=== PATIENT | male | born 1995 | race African-American/Black ===

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

== ENCOUNTER 2019-06-10 20:58 | Emergency (ER) | payer OTHER ==
[2019-06-10] MEDS ORDERED: ONDANSETRON 4 MG/2 ML VIAL IVP STA (21:34)
[2019-06-10] MEDS ORDERED: ACETAMINOPHEN TAB 325 MG TAB PO STA (21:35)
--- NOTE | 2019-06-10 21:42 | ED ---
Nausea/Vomiting/Diarrhea HPI - General Chief complaint: Nausea/Vomiting/Diarrhea Stated complaint: Vomiting Time Seen by Provider: 06/10/19 21:15 Source: patient Mode of arrival: ambulatory Limitations: no limitations - History of Present Illness Initial comments: 's patient is 24-year-old man presenting to be evaluated for abdominal pain, diarrhea, nausea. When I interview the patient, he states that his symptoms started early today with upset stomach and diarrhea. He states he has had about 4 watery bowel movements. He has not noted any blood or tarry material. He indicates that the pain is epigastric and upper abdominal. He states it is bu rning and intermittent. The pain is mild though he states it gets worse she tries to drink anything area he states that he has not felt like eating all day because of the nausea. He denies having any sarah vomiting. MD complaint: nausea, diarrhea, abdominal pain Onset/Timin -: days(s) Description of Diarrhea: water Associated Abdominal Pain: Yes Location: epigastric Radiation: none Severity: mild Quality: other (burning) Consistency: constant Improves with: none Worsens with: eating Associated Symptoms: denies other symptoms - Related Data Previous Rx's Medication Instructions Recorded Ibuprofen [Motrin] 600 mg PO Q6HR PRN #12 tab 03/21/16 Ondansetron Odt [Zofran ODT] 4 mg PO Q8HR PRN #20 tab 09/26/16 Ciprofloxacin HCl [Cipro] 500 mg PO BID 5 Days #10 tab 06/10/19 Allergies Allergy/AdvReac Type Severity Reaction Status Date / Time dust AdvReac Rash/Hives Uncoded 06/10/19 21:11 pollen AdvReac Rash/Hives Uncoded 06/10/19 21:11 Review of Systems ROS Statement: Those systems with pertinent positive or pertinent negative responses have been documented in the HPI. ROS Other: All systems not noted in ROS Statement are negative. Constitutional: Reports: fever Respiratory: Reports: cough. Denies: dyspnea Cardiovascular: Denies: chest pain, palpitations, edema Gastrointestinal: Reports: as per HPI, abdominal pain, nausea, diarrhea. Denies: vomiting, constipation, hematemesis, melena, hematochezia Genitourinary: Denies: dysuria, hematuria, testicular pain, testicular mass Musculoskeletal: Denies: back pain Skin: Denies: rash Neurological: Denies: headache, weakness, numbness Past Medical History Past Medical History: No Reported History History of Any Multi-Drug Resistant Organisms: None Reported Past Surgical History: Orthopedic Surgery Additional Past Surgical History / Comment(s): lt arm Past Psychological History: No Psychological Hx Reported Smoking Status: Never smoker Past Alcohol Use History: Occasional Past Drug Use History: None Reported - Past Family History Mother Family Medical History: No Reported History General Exam Limitations: no limitations General appearance: alert, in no apparent distress Head exam: Present: atraumatic, normocephalic Eye exam: Present: normal appearance. Absent: scleral icterus, conjunctival injection ENT exam: Present: normal oropharynx Respiratory exam: Present: normal lung sounds bilaterally. Absent: respiratory distress, wheezes, rales, rhonchi, stridor Cardiovascular Exam: Present: regular rate, normal rhythm, normal heart sounds. Absent: systolic murmur, diastolic murmur, rubs, gallop GI/Abdominal exam: Present: soft, normal bowel sounds. Absent: distended, tenderness, guarding, rebound, rigid, mass, pulsatile mass, hernia Extremities exam: Present: normal inspection, normal capillary refill. Absent: pedal edema, calf tenderness Back exam: Present: normal inspection Neurological exam: Present: alert Skin exam: Present: warm, dry, intact, normal color. Absent: rash Course Vital Signs 06/10/19 21:08 Temperature 101 F H Pulse Rate 95 Respiratory 20 Rate Blood Pressure 129/81 O2 Sat by Pulse 97 Oximetry - Reevaluation(s) Reevaluation #1: 06/10/19 21:43 following the initial history and physical, the patient subsequently showed me a swelling to the left side of his anus. He states that he has been having intermittent swelling there and was seen at the other hospital in [facility] in the summer where they were concerned he may have Crohn's disease. He states that he had been supposed to follow-up with the surgeon from the facility but had not. On the exam there is approximately 3 x 6 area of induration with tenderness. There is warmth and erythema suggestive of abscess. Medical Decision Making - Medical Decision Making discussed with patient the results. At this point he declines empiric STI treatment. Discussed appropriate further care and follow-up as well as return parameters. - Lab Data Result diagrams: 06/10/19 21:50 06/10/19 21:50 Lab Results 06/10/19 06/10/19 06/10/19 Range/Units 21:50 21:50 21:50 WBC 8.0 (3.8-10.6) k/uL RBC 5.42 (4.30-5.90) m/uL Hgb 15.5 (13.0-17.5) gm/dL Hct 46.9 (39.0-53.0) % MCV 86.6 (80.0-100.0) fL MCH 28.7 (25.0-35.0) pg MCHC 33.1 (31.0-37.0) g/dL RDW 13.3 (11.5-15.5) % Plt Count 223 (150-450) k/uL Neutrophils % (Manual) 75 % Lymphocytes % (Manual) 14 % Monocytes % (Manual) 8 % Eosinophils % (Manual) 3 % Neutrophils # (Manual) 6.00 (1.3-7.7) k/uL Lymphocytes # (Manual) 1.12 (1.0-4.8) k/uL Monocytes # (Manual) 0.64 (0-1.0) k/uL Eosinophils # (Manual) 0.24 (0-0.7) k/uL Nucleated RBCs 0 (0-0) /100 WBC Manual Slide Review Performed Sodium 138 (137-145) mmol/L Potassium 3.6 (3.5-5.1) mmol/L Chloride 105 (98-107) mmol/L Carbon Dioxide 25 (22-30) mmol/L Anion Gap 8 mmol/L BUN 14 (9-20) mg/dL Creatinine 1.01 (0.66-1.25) mg/dL Est GFR (CKD-EPI)AfAm >90 (>60 ml/min/1.73 sqM) Est GFR (CKD-EPI)NonAf >90 (>60 ml/min/1.73 sqM) Glucose 95 (74-99) mg/dL Calcium 9.6 (8.4-10.2) mg/dL Total Bilirubin 0.9 (0.2-1.3) mg/dL AST 25 (17-59) U/L ALT 18 (4-49) U/L Alkaline Phosphatase 80 (38-126) U/L C-Reactive Protein 7.0 (<10.0) mg/L Total Protein 7.4 (6.3-8.2) g/dL Albumin 4.3 (3.5-5.0) g/dL Urine Color Yellow Urine Appearance Cloudy (Clear) Urine pH 7.0 (5.0-8.0) Ur Specific [place] 1.026 (1.001-1.035) Urine Protein Trace H (Negative) Urine Glucose (UA) Negative (Negative) Urine Ketones 1+ H (Negative) Urine Blood Negative (Negative) Urine Nitrite Negative (Negative) Urine Bilirubin Negative (Negative) Urine Urobilinogen 3.0 (<2.0) mg/dL Ur Leukocyte Esterase Trace H (Negative) Urine RBC 1 (0-5) /hpf Urine WBC 6 H (0-5) /hpf Ur Squamous Epith Cells 1 (0-4) /hpf Amorphous Sediment Rare H (None) /hpf Urine Mucus Rare H (None) /hpf Disposition Clinical Impression: Inguinal adenopathy, Diarrhea Disposition: HOME SELF-CARE Condition: Good Instructions (If sedation given, give patient instructions): Acute Diarrhea (ED) Prescriptions: Ciprofloxacin HCl [Cipro] 500 mg PO BID 5 Days #10 tab Is patient prescribed a controlled substance at d/c from ED?: No Referrals: Keshav Loya MD [Primary Care Provider] - 1-2 days
[2019-06-10 22:09] LABS: Amorphous Sediment,Urine Rare /hpf; Appearance,Urine Cloudy (Clear); Bilirubin,Urine Negative (Negative); Blood,Urine Negative (Negative); Color,Urine Yellow; Glucose,Urine (UA) Negative (Negative); Ketones,Urine 1+ (Negative); Leukocyte Esterase,Urine Trace (Negative); Mucus,Urine Rare /hpf; Nitrite,Urine Negative (Negative); Protein,Urine Trace (Negative); RBC,Urine 1 /hpf (0-5); Specific Gravity,Urine 1.026 (1.001-1.035); Squamous Epithelial Cell,Urine 1 /hpf (0-4); WBC,Urine 6 /hpf (0-5)
[2019-06-10 22:15] LABS: HCT 46.9 % (39.0-53.0); HGB 15.5 gm/dL (13.0-17.5); MCH 28.7 pg (25.0-35.0); MCHC 33.1 g/dL (31.0-37.0); MCV 86.6 fL (80.0-100.0); Mean Platelet Volume 7.7; Platelet Count 223 k/uL (150-450); RBC 5.42 m/uL (4.30-5.90); RDW 13.3 % (11.5-15.5)
--- NOTE | 2019-06-10 22:19 | CT ---
EXAMINATION TYPE: CT abdomen pelvis w con DATE OF EXAM: 06/10/2019 COMPARISON: 02/02/2015 HISTORY: abdominal pain, fever, nausea, vomiting CT DLP: 747.8 mGycm Automated exposure control for dose reduction was used. CONTRAST: Performed with IV Contrast, patient injected with 100 mL of Isovue 300. Lung bases are clear. There is no pleural effusion. Heart appears normal. Liver spleen pancreas gallb ladder appear normal. Bile ducts are not dilated. There is no adrenal mass. Kidneys show satisfactory contrast opacification. There is no hydronephrosi s. There is no retroperitoneal adenopathy. Bladder distends smoothly. There is no inguinal hernia. Th ere is 1.8 cm left inguinal lymph node. There are a few bilateral inguinal lymph nodes. There is no free fluid in the pelvis. There is no mesenteric edema. There is no ascites or free air. Appendix appears normal. Appendix is posterior. There is no sign of a bowel obstruction. Lumbar spine is intact. Vertebra have normal alignment. There is no compression fracture. Bony pelvis is intact. IMPRESSION: No sign of appendicitis. Bilateral mild inguinal adenopathy. No adverse change compared to old exam. Adenopathy unchanged.
[2019-06-10 22:20] LABS: ALT 18 U/L (4-49); AST 25 U/L (17-59); African American GFR (CKD) >90 (>60 ml/min/1.73 sqM); Albumin 4.3 g/dL (3.5-5.0); Alkaline Phosphatase 80 U/L (38-126); Anion Gap 8 mmol/L; Blood Urea Nitrogen 14 mg/dL (9-20); Calcium 9.6 mg/dL (8.4-10.2); Carbon Dioxide 25 mmol/L (22-30); Chloride 105 mmol/L (98-107); Glucose 95 mg/dL (74-99); Non-African American GFR(CKD) >90 (>60 ml/min/1.73 sqM); Potassium 3.6 mmol/L (3.5-5.1); Sodium 138 mmol/L (137-145); Total Bilirubin 0.9 mg/dL (0.2-1.3); Total Protein 7.4 g/dL (6.3-8.2)
[2019-06-10 22:43] LABS: Eosinophils # (M) 0.24 k/uL (0-0.7); Lymphocytes # (M) 1.12 k/uL (1.0-4.8); Monocytes # (M) 0.64 k/uL (0-1.0); Neutrophils % (M) 75 %; Nucleated Red Blood Cells 0 /100 WBC (0-0); Total Cells Counted 100
[2019-06-10] MEDS ORDERED: MAG HYDROX/AL HYDROX/SIMETH 30 ML, HYOSCYAMINE ELIXIR 10 ML, LIDOCAINE VISCOUS 2% 10 ML PO STA ×3 (23:02)
[2019-06-10 23:03] VITALS: BP 114/58; PULSE 71; RESP 18; TEMP 98.3
[2019-06-12 13:29] LABS: C. trachomatis,PCR Negative (Neg,Equiv); Chlamydia trachomatis Source Urine; N. gonorrhoeae,PCR Negative (Neg,Equiv); Neisseria Source Urine
== END 2019-06-10 23:13 | disposition home or self-care (01) ==
LOC: EC 20:58
DX: R59.0 Localized enlarged lymph nodes (principal); R19.7 Diarrhea, unspecified; R10.9 Unspecified abdominal pain; R11.0 Nausea; Z91.048 Other nonmedicinal substance allergy status
CPT/HCPCS: 36415; 80053; 85025; 86140; 81001; 87491; 87591; 74177; 96374; 99284; J2405; Q9967